=== PATIENT | male | born 1970 | race African-American/Black ===

== ENCOUNTER 2022-02-18 23:18 | Emergency (ER) | payer MEDICAID ==
[~2022-02-18] VITALS: Ht 182.9 cm; Wt 100.0 kg
[2022-02-18] MEDS ORDERED: SODIUM CHLORIDE 0.9% 1,000 ML IV ONE (23:45)
[2022-02-18] MEDS ORDERED: TETANUS, DIPHTHERIA, PERTUSSIS VAC/PF 0.5ML (>10YR OLD) IM ONE (23:45)
[2022-02-18] MEDS ORDERED: LIDOCAINE HCL/PF 1% 10 MG/ML 5ML VIAL INFIL ONE (23:45)
[2022-02-18] MEDS ORDERED: BACITRACIN ZINC OINT UDPKT TOP ONE (23:45)
[2022-02-19 00:32] LABS: HEMOGLOBIN. 12.9 g/dL (14.0-18.0); MEAN CORPUSCULAR HEMOGLOBIN 31.5 pg (28.0-32.0)
[2022-02-19 00:38] LABS: BASOPHILS % 0.3 % (0.0-2.0); EOSINOPHILS % 0.7 % (0.0-5.0); HEMATOCRIT. 37.2 % (42.0-52.0); MONOCYTES % 4.6 % (2.0-8.0); NEUTROPHILS % 61.4 % (40.0-76.0); PLATELET 272 x1000/uL (130-400); RED BLOOD CELL COUNT 4.09 mill/uL (4.7-6.1); RED CELL DISTRIBUTION WIDTH 13.2 % (11.6-14.6)
[2022-02-19 00:51] LABS: CHLORIDE 103 mEq/L (98-107)
[2022-02-19 01:50] LABS: ETHANOL BLOOD 348 mg/dL
[2022-02-19 03:21] LABS: CLARITY URINE CLEAR (CLEAR); COLOR URINE YELLOW (YELLOW); KETONES URINE NEGATIVE (NEGATIVE); LEUKOCYTE ESTERASE URINE NEGATIVE (NEGATIVE); NITRITE URINE NEGATIVE (NEGATIVE); OCCULT BLOOD URINE NEGATIVE (NEGATIVE); PROTEIN URINE NEGATIVE (NEGATIVE); SPECIFIC GRAVITY URINE 1.008 (1.005-1.030); UROBILINOGEN URINE 0.2 E.U./dL (0.2-1.0)
[2022-02-19 03:33] LABS: *AMPHETAMINES SCREEN URINE NEGATIVE (NEGATIVE); *BARBITURATES SCREEN URINE NEGATIVE (NEGATIVE); *BENZODIAZEPINES SCREEN URINE NEGATIVE (NEGATIVE); *COCAINE SCREEN URINE NEGATIVE (NEGATIVE); CANNABINOID URINE SCREEN PRESUMTIVE POSITIVE (NEGATIVE); METHADONE URINE SCREEN NEGATIVE (NEGATIVE); OPIATES URINE SCREEN NEGATIVE (NEGATIVE); PHENCYCLIDINE URINE SCREEN NEGATIVE (NEGATIVE)
[2022-02-19] MEDS ORDERED: BO1 TP (05:26)
[2022-02-19 06:00] VITALS: BP 107/73
== END 2022-02-19 10:25 | disposition home or self-care (01) ==
LOC: ER 23:18
DX: S01.111A Laceration without foreign body of right eyelid and periocular area, initial encounter (principal); F10.129 Alcohol abuse with intoxication, unspecified; R51.9 Headache, unspecified; Y90.8 Blood alcohol level of 240 mg/100 ml or more; W10.1XXA Fall (on)(from) sidewalk curb, initial encounter; Y93.89 Activity, other specified; Y92.89 Other specified places as the place of occurrence of the external cause; Y99.8 Other external cause status; Z98.890 Other specified postprocedural states
CPT/HCPCS: 12013; 36415; 70450; 70486; 71045; 72125; 80053; 80305; 80307; 80320; 80329; 81003; 82962; 85025; 90471; 90715; 96360; 96361; 99285; J3490; J7030; Z7610; L0172; G0480